=== PATIENT | male | born 1985 | race Two or more races ===

== ENCOUNTER → 2016-07-19 | Outpatient (CLI) | payer OTHER ==
[~2016-07-19] MED LIST: COREG3.125 M1 PO; LIDOCAINE20 MG/1 M5 MM; NAPROSYN500 MG PO; PEN-VEE K,VEET500 MG PO; PERCOCET 5/31 TABLET PO; PROAIR HFA8.5 GM IH; TRAMADOL HCL50 MG PO; ULTRACET1 TABLET PO; ULTRAM50 MG PO; ZITHROMAX Z-PA250 MG PO
== END | disposition home or self-care (01) ==
LOC: NUC 07-12 13:00
DX: I51.7 Cardiomegaly (principal); I10 Essential (primary) hypertension; I42.9 Cardiomyopathy, unspecified
CPT/HCPCS: 78472; A9512; A9560

== ENCOUNTER 2016-12-10 20:40 | Inpatient (IN) | payer SELFPAY ==
[~2016-12-10] VITALS: Ht 175.3 cm; Wt 116.9 kg
[2016-12-10 22:03] LABS: HEMATOCRIT 50.1 % (38.0-50.0); MCH 29.7 PG (29.0-34.0); MCHC 33.9 G/DL (30.0-36.0); MCV 87.4 FL (86-99); MEAN PLAT.VOLUME 9.6 uM^3 (9.0-12.4); PLATELET COUNT 334 K/uL (156-360); RBC DIS.WIDTH-CV 13.3 % (11.8-14.6); RBC DIS.WIDTH-SD 42.4 % (39-53); RED BLOOD COUNT 5.73 M/uL (4.00-5.50); WHITE BLOOD COUNT 14.6 K/uL (4.1-10.2)
[2016-12-10 22:13] LABS: CHLORIDE 104 mEq/L (99-109); POTASSIUM 3.2 mEq/L (3.7-5.4); SODIUM 139 mEq/L (136-147)
[2016-12-10 22:15] LABS: GLUCOSE 110 mg/dL (70-99)
[2016-12-10 22:17] LABS: ANION GAP 9 MEQ/L (2-14); TOTAL BILIRUBIN 2.1 mg/dL (0.0-1.0)
[2016-12-10 22:18] LABS: SERUM ETHYL ALCOHOL < 10 mg/dL
[2016-12-10 22:19] LABS: ALKALINE PHOSPHATASE 93 IU/L (3-129); GFR ESTIMATE (CALCULATED) > 59 mL/min/
[2016-12-10 22:20] LABS: UREA NITROGEN (BUN) 9 mg/dL (9-23)
[2016-12-11 00:38] LABS: ADD MIUA? YES; BILIRUBIN NEGATIVE; BLOOD NEGATIVE; COLOR AMBER ((YELLOW)); GLUCOSE (STRIP) NEGATIVE; KETONES 20; LEUKOCYTES NEGATIVE; NITRITE NEGATIVE; PROTEIN (STRIP) 30; SPECIFIC GRAVITY 1.027 (1.000-1.030)
[2016-12-11 00:44] LABS: BACTERIA NONE SEEN /HPF; EPITHELIAL CELLS NONE SEEN /HPF; MUCUS TRACE /LPF; RED BLOOD CELLS 0-5 /HPF (0-5); WHITE BLOOD CELLS 0-5 /HPF (0-5)
[2016-12-11 00:58] LABS: AMPHETAMINE NEGATIVE (500 ng/mL); BARBITURATES NEGATIVE (200 ng/mL); BENZODIAZEPINES NEGATIVE (150 ng/mL); COCAINE NEGATIVE (150 ng/mL); INTERNAL CONTROLS VALID? YES; METHADONE NEGATIVE (200 ng/mL); METHAMPHETAMINE NEGATIVE (500 ng/mL); OPIATES (MORPHINE) NEGATIVE (100 ng/mL); OXYCODONE NEGATIVE (100 ng/mL); PHENCYCLIDINE NEGATIVE (25 ng/mL); PROPOXYPHENE NEGATIVE (300 ng/mL); THC CANNABINOIDS NEGATIVE (50 ng/mL); TRICYCLIC ANTIDEPRESSANTS NEGATIVE (300 ng/mL)
[2016-12-11 09:17] VITALS: BP 141/77
[2016-12-11 09:28] VITALS: BP 141/77
[2016-12-11 15:27] VITALS: BP 153/86
[2016-12-12 00:44] VITALS: BP 168/93
[2016-12-12 00:47] VITALS: BP 168/93
[2016-12-12 07:37] VITALS: BP 145/98
[2016-12-12 15:15] VITALS: BP 153/93
[2016-12-12 18:36] VITALS: BP 165/85
[2016-12-13 07:29] VITALS: BP 175/100
[2016-12-13 11:34] VITALS: BP 155/86
[2016-12-13 15:35] VITALS: BP 169/102
[2016-12-14 07:27] VITALS: BP 165/102
[2016-12-14] MEDS ORDERED: CLONIDINE HCL0.1 MG PO (09:53)
[2016-12-14] MEDS ORDERED: QUETIAPINE FUM200 MG PO (09:53)
== END 2016-12-14 11:08 | disposition home or self-care (01) | DRG 885 ==
LOC: EME 20:40 → EDOF 12-11 06:37 → 1WEST 12-11 06:37
PROVIDERS: Emergency Medicine
DX: F32.3 Major depressive disorder, single episode, severe with psychotic features (principal); I16.0 Hypertensive urgency; I10 Essential (primary) hypertension; R45.851 Suicidal ideations; F17.200 Nicotine dependence, unspecified, uncomplicated; Z81.8 Family history of other mental and behavioral disorders; Z91.14 Patient's other noncompliance with medication regimen
CPT/HCPCS: 70450; 80053; 81003; 85027; 90837; 99281; 99285; G0480; J0360; J1630; J2060; Q0177

== ENCOUNTER 2017-04-09 13:03 | Inpatient (IN) | payer OTHER ==
[~2017-04-09] VITALS: Ht 180.3 cm; Wt 126.1 kg
[~2017-04-09 13:03] MED LIST changes: +CLONIDINE HCL0.1 MG PO; +QUETIAPINE FUM200 MG PO
[2017-04-09 14:37] LABS: CHLORIDE 107 mEq/L (99-109); POTASSIUM 3.5 mEq/L (3.7-5.4); SODIUM 139 mEq/L (136-147)
[2017-04-09 14:39] LABS: GLUCOSE 115 mg/dL (70-99)
[2017-04-09 14:40] LABS: ANION GAP 9 MEQ/L (2-14)
[2017-04-09 14:41] LABS: TOTAL BILIRUBIN 2.1 mg/dL (0.0-1.0)
[2017-04-09 14:42] LABS: SERUM ETHYL ALCOHOL < 10 mg/dL
[2017-04-09 14:43] LABS: ALKALINE PHOSPHATASE 100 IU/L (3-129); GFR ESTIMATE (CALCULATED) > 59 mL/min/
[2017-04-09 14:44] LABS: UREA NITROGEN (BUN) 11 mg/dL (9-23)
[2017-04-09 15:00] LABS: HEMATOCRIT 48.2 % (38.0-50.0); MCH 29.5 PG (29.0-34.0); MCHC 33.4 G/DL (30.0-36.0); MCV 88.3 FL (86-99); PLATELET COUNT 295 K/uL (156-360); RBC DIS.WIDTH-CV 13.3 % (11.8-14.6); RBC DIS.WIDTH-SD 43.1 % (39-53); RED BLOOD COUNT 5.46 M/uL (4.00-5.50)
[2017-04-09 15:04] LABS: ADD MIUA? YES; BILIRUBIN NEGATIVE; BLOOD NEGATIVE; COLOR YELLOW ((YELLOW)); GLUCOSE (STRIP) NEGATIVE; KETONES 5; LEUKOCYTES NEGATIVE; NITRITE NEGATIVE; PROTEIN (STRIP) 30; SPECIFIC GRAVITY 1.023 (1.000-1.030)
[2017-04-09 15:11] LABS: BACTERIA RARE /HPF; EPITHELIAL CELLS NONE SEEN /HPF; MUCUS TRACE /LPF; UCUL ADDED? NO; WHITE BLOOD CELLS 0-5 /HPF (0-5)
[2017-04-09 15:15] LABS: ADD MEDTOX COMMENT Y; AMPHETAMINE NEGATIVE (500 ng/mL); BARBITURATES NEGATIVE (200 ng/mL); BENZODIAZEPINES NEGATIVE (150 ng/mL); COCAINE NEGATIVE (150 ng/mL); INTERNAL CONTROLS VALID? YES; METHADONE NEGATIVE (200 ng/mL); METHAMPHETAMINE NEGATIVE (500 ng/mL); OPIATES (MORPHINE) NEGATIVE (100 ng/mL); OXYCODONE NEGATIVE (100 ng/mL); PHENCYCLIDINE NEGATIVE (25 ng/mL); PROPOXYPHENE NEGATIVE (300 ng/mL); THC CANNABINOIDS PRESUMPTIVE POSITIVE (50 ng/mL); TRICYCLIC ANTIDEPRESSANTS NEGATIVE (300 ng/mL)
[2017-04-09 18:17] VITALS: BP 171/96
[2017-04-09 21:03] VITALS: BP 168/93
[2017-04-10 08:55] VITALS: BP 171/107
[2017-04-10 16:38] VITALS: BP 144/92
[2017-04-10 19:01] VITALS: BP 167/95
[2017-04-11 08:01] VITALS: BP 166/98
[2017-04-11 15:46] VITALS: BP 185/110
[2017-04-11 19:32] VITALS: BP 180/108
[2017-04-12 07:21] VITALS: BP 174/96
[2017-04-12] MEDS ORDERED: CLONIDINE HCL0.2 MG PO (10:07)
[2017-04-12] MEDS ORDERED: QUETIAPINE FUM200 MG PO (10:07)
== END 2017-04-12 12:06 | disposition home or self-care (01) | DRG 885 ==
LOC: EME 13:03 → EDOF 16:46 → 1WEST 16:46 → ENRESERV 18:06 → 1WEST 18:06
PROVIDERS: Emergency Medicine
DX: F20.9 Schizophrenia, unspecified (principal); F29 Unspecified psychosis not due to a substance or known physiological condition; Z91.14 Patient's other noncompliance with medication regimen
CPT/HCPCS: 80053; 81003; 84999; 85027; 90837; 99281; 99285; G0480; J1630

== ENCOUNTER 2017-07-31 13:25 | Emergency (ER) | payer OTHER ==
[~2017-07-31] VITALS: Ht 167.6 cm; Wt 124.2 kg
[~2017-07-31 13:25] MED LIST changes: +CLONIDINE HCL0.2 MG PO
[2017-07-31] MEDS ORDERED: VISTARIL50 MG PO (17:01)
[2017-07-31] MEDS ORDERED: HYDROCHLOROTHIA25 MG PO (17:01)
[2017-07-31 17:35] VITALS: BP 121/64
== END 2017-07-31 17:36 | disposition home or self-care (01) ==
LOC: EME 13:25
DX: F41.9 Anxiety disorder, unspecified (principal); G47.00 Insomnia, unspecified; I10 Essential (primary) hypertension; Z76.0 Encounter for issue of repeat prescription; F25.9 Schizoaffective disorder, unspecified; F17.200 Nicotine dependence, unspecified, uncomplicated

== ENCOUNTER 2017-08-05 07:38 | Emergency (ER) | payer OTHER ==
[~2017-08-05] VITALS: Ht 167.6 cm; Wt 123.4 kg
[~2017-08-05 07:38] MED LIST changes: +HYDROCHLOROTHIA25 MG PO; +VISTARIL50 MG PO
[2017-08-05 08:20] LABS: BASOPHIL (%) 0.3 % (0-1); EOSINOPHIL (%) 0.9 % (0-5); EOSINOPHIL COUNT 0.1 K/uL (0-0.3); HEMATOCRIT 45.4 % (38.0-50.0); HEMOGLOBIN 15.6 G/DL (12.5-16.6); IMMATURE GRANULOCYTE (%) 0.1 % (0.0-0.7); LYMPHOCYTE (%) 18.6 % (15-42); LYMPHOCYTE COUNT 1.8 K/uL (1.0-2.8); MCH 30.9 PG (29.0-34.0); MCHC 34.4 G/DL (30.0-36.0); MCV 89.9 FL (86-99); MONOCYTE (%) 5.9 % (3-12); MONOCYTE COUNT 0.6 K/uL (0-0.8); NEUTROPHIL (%) 74.2 % (45-76); NEUTROPHIL COUNT 7.3 K/uL (1.8-6.4); PLATELET COUNT 284 K/uL (156-360); RBC DIS.WIDTH-CV 13.2 % (11.8-14.6); RBC DIS.WIDTH-SD 43.9 % (39-53); RED BLOOD COUNT 5.05 M/uL (4.00-5.50); WHITE BLOOD COUNT 9.8 K/uL (4.1-10.2)
[2017-08-05 08:29] LABS: CHLORIDE 102 mEq/L (99-109); POTASSIUM 4.2 mEq/L (3.7-5.4); SODIUM 135 mEq/L (136-147)
[2017-08-05 08:31] LABS: GLUCOSE 108 mg/dL (70-99)
[2017-08-05 08:34] LABS: SERUM ETHYL ALCOHOL < 10 mg/dL
[2017-08-05 08:35] LABS: CREATININE 0.8 mg/dL (0.6-1.3); GFR ESTIMATE (CALCULATED) > 59 mL/min/ (58.99-99999)
[2017-08-05 08:36] LABS: UREA NITROGEN (BUN) 15 mg/dL (9-23)
[2017-08-05 09:50] LABS: APPEARANCE SL.HAZY ((CLEAR)); BILIRUBIN NEGATIVE; BLOOD NEGATIVE; COLOR YELLOW ((YELLOW)); GLUCOSE (STRIP) NEGATIVE; KETONES 20; LEUKOCYTES NEGATIVE; NITRITE NEGATIVE; PROTEIN (STRIP) 30; SPECIFIC GRAVITY 1.029 (1.000-1.030); UROBILINOGEN 0.2 MG/DL (0.2-1.0)
[2017-08-05 09:59] LABS: BACTERIA RARE /HPF; EPITHELIAL CELLS RARE /HPF; HYALINE CASTS 0-5 /LPF; MUCUS 1+ /LPF; RED BLOOD CELLS 0-5 /HPF (0-5); UCUL ADDED? NO; WHITE BLOOD CELLS 0-5 /HPF (0-5)
[2017-08-05 10:16] LABS: AMPHETAMINE NEGATIVE (500 ng/mL); BARBITURATES NEGATIVE (200 ng/mL); BENZODIAZEPINES NEGATIVE (150 ng/mL); BUPRENORPHINE NEGATIVE (10 ng/mL); COCAINE NEGATIVE (150 ng/mL); METHADONE NEGATIVE (200 ng/mL); METHAMPHETAMINE NEGATIVE (500 ng/mL); OPIATES (MORPHINE) NEGATIVE (100 ng/mL); OXYCODONE NEGATIVE (100 ng/mL); PHENCYCLIDINE NEGATIVE (25 ng/mL); PROPOXYPHENE NEGATIVE (300 ng/mL); THC CANNABINOIDS NEGATIVE (50 ng/mL); TRICYCLIC ANTIDEPRESSANTS NEGATIVE (300 ng/mL)
[2017-08-06 10:08] VITALS: BP 160/97
== END 2017-08-06 10:27 | disposition home or self-care (01) ==
LOC: EME 07:38
PROVIDERS: Physician Assistant
DX: F33.3 Major depressive disorder, recurrent, severe with psychotic symptoms (principal); R45.851 Suicidal ideations; F17.200 Nicotine dependence, unspecified, uncomplicated; Z90.49 Acquired absence of other specified parts of digestive tract
CPT/HCPCS: 80048; 81003; 85025; 90839; 99281; 99285; G0480; J1630

== ENCOUNTER 2017-12-01 10:12 | Emergency (ER) | payer OTHER ==
[~2017-12-01] VITALS: Ht 167.6 cm; Wt 127.9 kg
[2017-12-01 10:54] VITALS: BP 158/88
== END 2017-12-01 11:00 | disposition home or self-care (01) ==
LOC: EME 10:12
DX: R00.2 Palpitations (principal); I49.1 Atrial premature depolarization; R94.31 Abnormal electrocardiogram [ECG] [EKG]; I10 Essential (primary) hypertension; F32.9 Major depressive disorder, single episode, unspecified; F31.9 Bipolar disorder, unspecified; F25.9 Schizoaffective disorder, unspecified; F17.200 Nicotine dependence, unspecified, uncomplicated; Z90.49 Acquired absence of other specified parts of digestive tract
CPT/HCPCS: 93005; 99281; 99284